=== PATIENT | male | born 1980 | race Caucasian/White ===

== ENCOUNTER 2019-12-27 23:31 | Emergency (ER) | payer OTHER, SELFPAY ==
[2019-12-27 23:32] VITALS: BP 129/87; PULSE 75; RESP 18; TEMP 35.8; O2SAT 97; BMI 28.9
--- NOTE | 2019-12-28 00:04 | ED.VIS.GEN ---
History of Present Illness Chief Complaint: Allergic Reaction Narrative: This patient is a 39-year-old male who presents with swelling of the lip. Patient initially noted swelling of his left lower lip 4 to 5 days ago. He does have a small wound from shaving just below the lip. His swelling has been increasing over the last few days but he also began develop some pressure and pain today which is mild. No fevers. He otherwise denies any recent illness. He takes no daily medications. Past Medical History - Allergies and Home Meds Allergies/Adverse Reactions: Allergies No Known Allergies Allergy (Verified 12/27/19 23:31) Primary Care Physician: Estuardo Schultz MD [Primary Care Provider] - Past Medical History: None Smoking Status: Current every day smoker Review of Systems All systems negative except as indicated General: Denies: Fever ENT: Reports: - - Lip swelling and pain Cardiovascular: Denies: Chest pain Respiratory: Denies: Dyspnea Gastrointestinal: Denies: Nausea, Vomiting Skin: Denies: Rash Neurological: Denies: Headache Allergy: Denies: Uticaria Physical Exam Vital Signs/Narrative: Vital Signs Temp Pulse Resp BP Pulse Ox 12/27/19 23:32 96.5 F L 75 18 129/87 H 97 Inital Vital Signs reviewed: Yes General: Well nourished, Well developed Head: Normocephalic Eyes: EOMI ENT: Moist mucous membranes, - - Patient has swelling and induration of the left lower lip. There is a tiny wound just below the lip near this area. No fluctuance. No drainage. Neck: Supple Cardiovascular: Regular rate, Regular rhythm Respiratory: No distress Abdomen: Soft Skin: Normal color Neurological: Alert Psychological: Normal affect Diagnostic/Tx/Re-eval - Medical Decision Making I did perform a [id number] ultrasound of the liver which shows no discrete fluid collection. I do believe presentation is consistent with cellulitis and early abscess. We will treat with clindamycin. Patient was given the first dose here. I also provided a prescription for naproxen. We will refer to ENT for follow-up the patient understands to return for new or worsening symptoms. ED Disposition - Plan for ED Patient: Disposition: Home or Assisted Living Diagnosis: Lip abscess Instructions: ABSCESS, Antiobiotic Treatment Only Prescriptions: Clindamycin HCl [Cleocin] 300 mg PO Q6H #40 cap Prescription Printed Naproxen [Naprosyn] 500 mg PO BID #20 tab Prescription Printed Referrals: Estuardo Schultz MD [Primary Care Provider] - Nate Shafer MD [STAFF PHYSICIAN] -
[2019-12-28] MEDS: Clindamycin HCl 150 MG Capsule 300 MG PO (00:21)
[2019-12-28 00:25] VITALS: RESP 18
== END 2019-12-28 00:30 | disposition home or self-care (01) ==
LOC: ED 12-28 00:29
PROVIDERS: Emergency Provider Emergency Medicine; PCP Family Medicine
DX: K13.0 Diseases of lips (principal); F17.200 Nicotine dependence, unspecified, uncomplicated
CPT/HCPCS: 99283

== ENCOUNTER → 2019-12-30 | Outpatient (CLI) | payer OTHER, SELFPAY ==
[2019-12-27 23:32] VITALS: BMI 28.9
== END | disposition home or self-care (01) ==
PROVIDERS: PCP Family Medicine; Referring Provider Otolaryngology; Visit Provider Otolaryngology
DX: K13.0 Diseases of lips (principal)
CPT/HCPCS: 87070; 87077; 87186; 87205

== ENCOUNTER 2020-11-16 20:12 | Emergency (ER) | payer OTHER, SELFPAY ==
[2020-11-16 20:13] VITALS: BP 141/89; PULSE 73; RESP 18; TEMP 36.1; O2SAT 98; BMI 30.6
--- NOTE | 2020-11-16 20:27 | CT_ITS ---
STUDY: CT SOFT TISSUE NECK WITH CONTRAST REASON FOR EXAM: Male, 40 years old. 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 Lump marked with bb RADIATION DOSAGE (If Supplied By Facility): CTDIvol = ( 15.55 ) mGy, DLP = ( 536.15 ) mGycm TECHNIQUE: The patient was scanned in a multi-detector CT scanner. High resolution transaxial imaging was performed following intravenous administration of IV 75mL Isovue-300. Sagittal and coronal images were reconstructed. Individualized dose optimization techniques were used for this CT. COMPARISON: None. FINDINGS: There is enlargement of the left submandibular gland when compared to the right. As example left submandibular gland measures 4.1 x 5.1 x 2.6 cm versus 3.0 x 4.5 x 1.9 cm. There is overlying thickening of the and mild overlying induration of the subcutaneous tissues. Findings are consistent with nonspecific inflammation of the left submandibular gland. Normal sublingual and parotid glands. Mild left cervical adenopathy. Normal bilateral adoption manager spaces. Normal bilateral parapharyngeal spaces. Normal bilateral carotid spaces. Normal visualized nasopharynx. Normal retropharyngeal space. Normal perivertebral space. Normal visualized bilateral faucial tonsils. The visualized tongue, tongue base and oropharynx are normal. There is no demonstrated solid or cystic mass lesion. There is no abnormal contrast enhancement. Normal epiglottis, bilateral vallecula and hypopharynx. The pre-epiglottic and paraglottic adipose spaces are normal. Normal visualized bilateral piriform sinuses, aryepiglottic folds, vocal cords, and arytenoid-cricoid articulations. Normal subglottic trachea. Normal bilateral lobes of the thyroid gland. Normal visualized pulmonary apices. Normal visualized paranasal sinuses. Normal visualized cervical spine. CT/Soft Tissue Neck WITH Contrast IMPRESSION: Asymmetric enlargement of the left submandibular gland with associated adjacent inflammatory changes and left cervical adenopathy. Findings are consistent with nonspecific left submandibular gland sialoadenitis. Electronically Signed: Davian Bridges MD at 21:29 EST , Service support ,
--- NOTE | 2020-11-16 20:27 | ED.VISSUMM ---
- ER Visit Summary Date of Service: 11/16/20 Chief Complaint: Neck pain History of Present Illness: The patient is a 40 M who presents with neck pain that began approximate 1 hour prior to arrival. Patient states he felt some pain and noted some swelling over the anterior aspect of the left side of his neck. Patient states the pain radiated to his left ear. Patient states he did have some mild difficulty swallowing. Patient denies any difficulty breathing or difficulty talking. Patient denies any fevers or chills. Patient denies any nausea or vomiting. Physical Examination: Vital signs are stable. Patient is afebrile. Patient is in no acute distress. Oral mucosa is pink and moist. Oropharynx is clear. Tympanic membranes are clear bilaterally. Neck is supple. Trachea is midline. There is no JVD. There is some mild fullness and tenderness over the left anterior neck. There is no erythema. There is no induration. There is no lymphadenopathy appreciated. Heart was regular rate and rhythm. Lungs are clear and equal bilateral. Abdomen is soft and nontender. Cranial nerves II through XII are intact. There are no focal motor or sensory deficits. Test Results: CBC and basic metabolic profile were within normal limits. CT scan of the soft tissue neck was obtained. There is some enlargement of the left submandibular gland with inflammatory changes consistent with left submandibular sialoadenitis. This was interpreted by the radiologist and reviewed by myself. Emergency Department Course and Treatment: Patient was advised of the findings. Patient was given a prescription for clindamycin. Patient was instructed to eat sour foods. Patient was instructed to follow-up with his primary care physician in 5 to 7 days. Patient understood and was agreeable with the plan. All questions were answered. Disposition: Discharge home Impression: Sialoadenitis This note was generated with [employer] dictation software. It may contain incorrect words, spelling, and punctuation that were not noted in review of the chart prior to signing ED Disposition - Plan for ED Patient: Disposition: Home or Assisted Living Diagnosis: Sialoadenitis of submandibular gland Instructions: ED Salivary Gland Infection Prescriptions: Clindamycin HCl [Cleocin] 300 mg PO Q6H #40 cap Prescription Printed Referrals: Estuardo Schultz MD [Primary Care Provider] - 5-7 Days
[2020-11-16 20:53] LABS: Basophil# 0.01 X10^3/uL; Basophil% 0.1 % (0-1); Eosinophil# 0.17 X10^3/uL; Eosinophils% 2.1 % (0-5); Hematocrit 43.4 % (40-54); Hemoglobin 14.1 g/dL (13.0-16.5); Lymphocyte % 30.5 % (19-41); Mean Corp Hgb Conc 32.5 g/dL (32-36); Mean Corpuscular Hgb 28.5 pg (27.0-32.0); Mean Corpuscular Volume 87.7 fL (80-94); Monocyte# 0.56 X10^3/uL; Monocyte% 6.8 % (0-10); NRBC Flagged by Analyzer 0 % (0-5); Neutrophil # 4.95 X10^3/uL (2.7-7.7); Neutrophil % 60.4 % (47-70); Platelet Count 256 K/mm3 (150-450); RBC Distribution Width CV 13.7 % (11.6-14.6); RBC Distribution Width SD 44.2 fl (35.1-43.9); Red Blood Count 4.95 M/mm3 (4.6-6.2); White Blood Count 8.2 K/mm3 (4.4-11.0)
[2020-11-16 21:04] LABS: Anion Gap 8 (5-15); BUN 10 mg/dL (7-18); BUN/Creat Ratio 11.5 RATIO (10-20); Calcium,Total 8.2 mg/dL (8.5-10.1); Chloride 105 mmol/L (98-107); Creatinine, Serum 0.87 mg/dL (0.70-1.30); EST Glomerular Filtration Rate 102 mL/min (>60); Est Glom Filt Rate - Afr Amer 123 mL/min (>60); Estimated Creatinine Clearance 142.99 ml/min; Glucose 97 mg/dL (74-106); Potassium 3.7 mmol/L (3.5-5.1); Sodium Level 139 mmol/L (136-145)
[2020-11-16] MEDS: Clindamycin HCl 150 MG Capsule 300 MG PO (22:07)
[2020-11-16 22:08] VITALS: PULSE 78; RESP 18; O2SAT 98
== END 2020-11-16 22:11 | disposition home or self-care (01) ==
PROVIDERS: Emergency Provider Emergency Medicine; PCP Family Medicine
DX: K11.20 Sialoadenitis, unspecified (principal); Z72.0 Tobacco use
CPT/HCPCS: 70491; 80048; 85025; 99284; Q9967; A4216

== ENCOUNTER 2022-05-01 05:02 | Emergency (ER) | payer OTHER, SELFPAY ==
--- NOTE | 2022-05-01 07:21 | CT_ITS ---
STUDY: CT ABDOMEN AND PELVIS WITH CONTRAST REASON FOR EXAM: Male, 42 years old. Diffuse abdominal pain. RADIATION DOSAGE (If Supplied By Facility): CTDIvol = ( 17.89 ) mGy, DLP = ( 1200.85 ) mGycm TECHNIQUE: Transaxial images were obtained from the dome of the diaphragm to the symphysis pubis with oral contrast. Oral and amp; IV Gastrografin and amp; 100mL Isovue-300 was administered. Sagittal and coronal images were reconstructed. Individualized dose optimization techniques were used for this CT. COMPARISON: Comparison is made with prior study 02/24/2017. FINDINGS: The visualized lung bases are unremarkable. The visualized portions of the heart are within normal limits. Normal liver. Normal gallbladder and extrahepatic biliary system. Normal spleen. Normal pancreas. Normal bilateral adrenal glands. A punctate calculus is seen in the anterior midpole calyx of the right kidney. A punctate calculus is also seen in the mid pole calyx of the left kidney. There is a small hiatal hernia. Normal small intestine. There are scattered colonic diverticula consistent with diverticulosis. The appendix is visualized and appears normal. Normal abdominal aorta. Normal inferior vena cava. Normal retroperitoneum. Normal urinary bladder. There is a small umbilical hernia containing fat. Normal osseous structures. CT/Abdomen/Pelvis WITH Contrast IMPRESSION: Tiny bilateral nonobstructive intrarenal calculi. Small umbilical hernia. Electronically Signed: Grant Jauregui MD at 8:56 EDT ,
--- NOTE | 2022-05-01 07:25 | EDS_ITS ---
HPI Narrative Narrative: Patient is a 42-year-old male who states that he was seen in urgent care a few days ago secondary to abdominal pain and had an x-ray which showed constipation. He states has been doing MiraLAX and taking [id number]-svizptf laxatives with minimal symptom improvement. He states he awoke this morning around 430 with abdominal pain and bouts of nausea and vomiting. He states that his family member from a bowel blockage and he is concerned for this as he has had 2 previous abdominal surgeries and therefore comes in for evaluation. Patient denies any past history of bowel blockage and also states that he is still currently passing gas PFSH PFS Home Medications clindamycin HCl 300 mg capsule 300 mg PO Q6H #40 caps 11/16/20 [Rx Last Taken Unknown] Allergy/AdvReac Type Severity Reaction Status Date / Time No Known Allergies Allergy Verified 11/16/20 20:15 Social History Smoking Status: Current every day smoker ROS ROS ED Constitutional Constitutional ED: Denies chills or fever(s) ENT ENT ED: Denies sore throat Cardiovascular Cardiovascular: Denies chest pain Respiratory/Chest Respiratory/Chest: Denies cough or dyspnea Gastrointestinal Gastrointestinal: Reports abdominal pain, constipation, nausea and vomiting; Denies diarrhea Genitourinary Genitourinary ED: Denies dysuria Musculoskeletal Musculoskeletal: Denies myalgias Integumentary Denies rash Neurologic Neurologic: Denies headache(s) Psychiatric Psychiatric: Reports anxiety Hematologic/Lymphatic Hematologic/Lymphatic: Denies easy bleeding or easy bruising EXAM Physical Exam Const Positive well nourished and well developed General Appearance ED: well developed HEENT Reports moist mucous membranes Eyes PERRL and EOMs intact bilaterally Neck supple Resp normal respiratory effort and clear to auscultation bilaterally Cardio regular rate and regular rhythm Rate: other Other Details: Radial pulses are +2-4 bilaterally are equal and symmetric GI GI Narrative: Abdomen is soft and nondistended with hypoactive bowel sounds. No increased tym pany noted. Patient does have a small umbilical hernia present that feels incarcerated in nature and there is pain with mild voluntary guarding at the site. Back/Spine no CVA tenderness Extremity normal to inspection Neuro oriented x3 and CN's II-XII intact bilaterally Sensorium / Orientation: alert Psych Mood & Affect: anxious Skin no rashes or lesions noted MDM MDM MDM Narrative Medical decision making narrative: Patient presented to the ER with stable vitals. He reported 2 previous abdominal surgeries and recent constipation. Now with his sudden onset pain and vomiting there is concern for possible obstruction. His exam showed an incarcerated hernia which could also be a cause for his symptoms. The patient will undergo basic blood work as well as CT scan with oral and IV contrast to check for possible obstruction or infectious process. However I was able to use manual pressure to reduce the incarcerated hernia and patient did report feeling better after this. The patient did not show any signs of infection perforation or obstruction. It did document the umbilical hernia but it contains fat and as there is no intestinal component there is no life-threatening process at this time. Therefore as symptoms have improved and CT has ruled out obstruction there is no need for further work-up and patient can be discharged and follow-up with general surgery on an outpatient basis Lab Data Attestation: I reviewed the patient's lab results. Radiography Diagnostic Testing: Clinical Impression(s) from Imaging Studies Abdomen/Pelvis CT 05/01/22 07:21 IMPRESSION: Tiny bilateral nonobstructive intrarenal calculi. Small umbilical hernia. Electronically Signed: Grant Jauregui MD at 8:56 EDT , Discharge Plan Triage ED Provider: Frank Reid Dx/Rx/DC Orders Clinical Impression: Umbilical hernia without obstruction and without gangrene Instructions: ED Hernia (Adult) Prescriptions: No Action clindamycin HCl 300 MG capsule 300 mg PO Q6H Qty: 40 0RF Primary Care Provider: Estuardo Schultz Referrals: Estuardo Schultz MD [Primary Care Provider] - Nena Jay MD [STAFF PHYSICIAN] - 3-5 Days if not improving Activity Restrictions/Additional Instructions: Please follow-up with general surgery to discuss surgical fixation of the hernia found on today's exam. If you are having intractable pain or vomiting please return for repeat evaluation. Otherwise your exam does not display any type of bowel blockage. Continue to take MiraLAX once daily for constipation and eat and drink as you normally would. Please return to the ER should you have any further concerns Disposition Disposition: Home, Self Care
[2022-05-01 11:41] LABS: Absolute Lymphocyte Count 2.63 X10^3/uL (0.83-4.51); Absolute Neutrophil Count 5.6 X10^3/uL (2.0-7.7); Basophil% 0.2 % (0-1); Eosinophil# 0.09 X10^3/uL; Hematocrit 46.1 % (40-54); Hemoglobin 15.5 g/dL (13.0-16.5); Lymphocyte # 2.63 X10^3/ul (0.83-4.51); Lymphocyte % 29.4 % (19-41); Mean Corp Hgb Conc 33.6 g/dL (32-36); Mean Corpuscular Hgb 29.6 pg (27.0-32.0); Mean Corpuscular Volume 88.1 fL (80-94); Mean Platelet Vol. 11.6 fl (6.2-12.0); Monocyte# 0.58 X10^3/uL; Monocyte% 6.5 % (0-10); Neutrophil % 62.7 % (47-70); Platelet Count 264 K/mm3 (150-450); RBC Distribution Width CV 13.2 % (11.6-14.6); Red Blood Count 5.23 M/mm3 (4.6-6.2); White Blood Count 8.9 K/mm3 (4.4-11.0)
[2022-05-01 11:42] LABS: Basophil# 0.02 X10^3/uL
[2022-05-01 12:15] LABS: BUN 10 mg/dL (7-18); BUN/Creat Ratio 9.5 RATIO (10-20); Creatinine, Serum 1.05 mg/dL (0.70-1.30); EST Glomerular Filtration Rate 82 mL/min (>60); Est Glom Filt Rate - Afr Amer 99 mL/min (>60); Glucose 102 mg/dL (74-106)
[2022-05-01 12:16] LABS: Anion Gap 8 (5-15); Chloride 104 mmol/L (98-107); Lipase 49 U/L (73-393); Potassium 3.8 mmol/L (3.5-5.1); Sodium Level 138 mmol/L (136-145)
== END 2022-05-01 09:38 | disposition home or self-care (01) ==
PROVIDERS: Emergency Provider Emergency Medicine; PCP Family Medicine; Visit Provider Emergency Medicine
DX: K42.9 Umbilical hernia without obstruction or gangrene (principal); F17.200 Nicotine dependence, unspecified, uncomplicated
CPT/HCPCS: 36415; 74177; 80048; 83605; 83690; 85025; 96374; 96375; 99284; Q9967; A4216; J2405

== ENCOUNTER 2023-04-07 07:47 | Emergency (ER) | payer OTHER, SELFPAY ==
[2023-04-07 07:47] VITALS: BP 174/88; PULSE 73; RESP 18; TEMP 36.6; O2SAT 97; BMI 30.9
--- NOTE | 2023-04-07 08:17 | ED.VIS.FALL ---
HPI HPI - Fall History of Present Illness Chief Complaint: Fall Informant: patient Occured/Mechanism Occurred: Yesterday Narrative Narrative: Patient presents with left upper chest pain after a fall. He states yesterday morning he fell down 7 or 8 steps after slipping. He denies loss of consciousness. He is complaining of pain along his left upper chest near the clavicle states he feels a clicking sensation. He denies shortness of breath. PFSH PFSH Medical History no medical history no medical history Home Medications clindamycin HCl 300 mg capsule 300 mg PO Q6H #40 caps 11/16/20 [Rx Last Taken Unknown] naproxen 500 mg tablet (Naprosyn) 500 mg PO BID PRN pain #20 tabs 04/07/23 [Rx Last Taken Unknown] Allergy/AdvReac Type Severity Reaction Status Date / Time No Known Allergies Allergy Verified 04/07/23 07:47 Social History Smoking Status: Current every day smoker tobacco type: cigarettes ROS ROS ED Constitutional Constitutional ED: Denies chills or fever(s) Eyes Eyes: Denies change in vision or discharge from eye(s) ENT ENT ED: Denies discharge from eye(s), rhinorrhea or sore throat Cardiovascular Cardiovascular: Reports chest pain; Denies palpitations Respiratory/Chest Respiratory/Chest: Denies cough or dyspnea Gastrointestinal Gastrointestinal: Denies abdominal pain, nausea or vomiting Musculoskeletal Musculoskeletal: Reports extremity pain; Denies back pain Integumentary Denies Abrasions or rash Neurologic Neurologic: Denies headache(s) or weakness Psychiatric Psychiatric: Denies anxiety or depression Allergic/Immunologic Allergic/Immunologic ED: Denies lip swelling or urticaria EXAM Physical Exam Const Vital Signs: 04/07/23 07:47 04/07/23 07:53 Temperature 97.8 F Temperature Source Temporal Pulse Rate 73 Respiratory Rate 18 Respiratory Effort Normal Non-Labored Blood Pressure 174/88 H Blood Pressure Mean 116 Pulse Ox 97 Oxygen Delivery Method Room Air Room Air Positive well nourished and well developed General Appearance ED: well developed HEENT Reports normocephalic and head/scalp atraumatic Eyes PERRL and EOMs intact bilaterally Neck supple Chest Wall Chest Narrative: Tenderness palpation on the left upper chest wall and clavicle. No obvious deformity. No abrasion or ecchymosis. Resp normal respiratory effort and clear to auscultation bilaterally Cardio regular rate and regular rhythm GI normal to inspection, nondistended, normoactive bowel sounds Palpation: soft Back/Spine no CVA tenderness Extremity normal to inspection Extremity Narrative: No tenderness palpation along the left upper extremity but decreased range of motion secondary to left upper chest pain. Neuro oriented x3 and no sensory deficits noted Sensorium / Orientation: alert Motor Exam: strength 5/5 throughout Psych mental status grossly normal Skin no rashes or lesions noted MDM MDM MDM Narrative Medical decision making narrative: X-rays of the C-spine, chest, left clavicle obtained to evaluate for fracture. Radiography Diagnostic Testing: Clinical Impression(s) from Imaging Studies Cervical Spine X-Ray 04/07/23 08:34 IMPRESSION: Degenerative changes at C5-6 otherwise unremarkable cervical spine Electronically Signed: John Burt MD at 8:47 EDT , Chest X-Ray 04/07/23 08:34 IMPRESSION: Normal x-ray examination of the chest. Electronically Signed: John Burt MD at 8:46 EDT , Clavicle X-Ray 04/07/23 08:34 IMPRESSION: Normal x-ray examination of the clavicle. Electronically Signed: John Burt MD at 8:48 EDT , Treatment and Re-Evaluation Narrative: X-rays of the C-spine, clavicle, and chest are reviewed by myself. I see no evidence of acute fracture. No pneumothorax. No evidence of dislocation. Radiology interpretation is reviewed and agrees. Test results are discussed with the patient. He is treated with a course of naproxen. Return instructions given. Discharge Plan Triage Chief Complaint: Fall ED Provider: Hyun Mancini Dx/Rx/DC Orders Clinical Impression: Chest wall contusion, Fall Instructions: ED Chest Wall Contusion Prescriptions: New naproxen [Naprosyn] 500 mg tablet 500 mg PO BID PRN (Reason: pain) Qty: 20 0RF No Action clindamycin HCl 300 MG capsule 300 mg PO Q6H Qty: 40 0RF Primary Care Provider: Estuardo Schultz Referrals: Estuardo Schultz MD [Primary Care Provider] - 1-2 Weeks Disposition Disposition: Home, Self Care Discharge Date/Time: 04/07/23 09:56
--- NOTE | 2023-04-07 08:34 | RAD_ITS ---
STUDY: X-RAY - LEFT CLAVICLE REASON FOR EXAM: Male, 43 years old. Pain after fall TECHNIQUE: 2 view(s) of the clavicle. COMPARISON: None. FINDINGS: Normal clavicle. Normal acromioclavicular articulation. Normal visualized sternoclavicular articulation. Normal visualized pulmonary apex. RAD/Clavicle IMPRESSION: Normal x-ray examination of the clavicle. Electronically Signed: John Burt MD at 8:48 EDT ,
--- NOTE | 2023-04-07 08:34 | RAD_ITS ---
STUDY: X-RAY - CERVICAL SPINE REASON FOR EXAM: Male, 43 years old. Neck pain after a fall TECHNIQUE: 3 view(s) of the cervical spine were obtained. COMPARISON: None FINDINGS: Normal anterior atlantoaxial articulation. Normal odontoid process. Normal cervical lordosis. Normal vertebral bodies and endplates. Normal disc space heights except for narrowing at C5-6.. The soft tissue structures are unremarkable. There is no demonstrated fracture of the cervical spine. RAD/Cerv Spine 2 or 3 Views IMPRESSION: Degenerative changes at C5-6 otherwise unremarkable cervical spine Electronically Signed: John Burt MD at 8:47 EDT ,
--- NOTE | 2023-04-07 08:34 | RAD_ITS ---
STUDY: X-RAY CHEST REASON FOR EXAM: Male, 43 years old. Chest pain after trauma TECHNIQUE: PA and lateral views of the chest. COMPARISON: None. FINDINGS: The lungs are clear and expanded. There is no demonstrated pleural abnormality. Normal size heart. Normal mediastinum and miguel ángel. Normal visualized pulmonary arteries. Normal visualized aortic arch and descending thoracic aorta. Normal visualized thoracic spine. Normal visualized ribs, clavicles, and shoulders. There is no demonstrated abnormality of the visualized soft tissue structures of the upper abdomen. RAD/Chest PA and Lateral IMPRESSION: Normal x-ray examination of the chest. Electronically Signed: John Burt MD at 8:46 EDT ,
== END 2023-04-07 09:56 | disposition home or self-care (01) ==
PROVIDERS: Emergency Provider Emergency Medicine; PCP Family Medicine; Visit Provider Emergency Medicine
DX: S20.20XA Contusion of thorax, unspecified, initial encounter (principal); F17.210 Nicotine dependence, cigarettes, uncomplicated; W10.9XXA Fall (on) (from) unspecified stairs and steps, initial encounter
CPT/HCPCS: 71046; 72040; 73000; 99282